=== PATIENT | female | born 1955 | race Caucasian/White ===

== ENCOUNTER 2022-03-31 06:55 | Observation (INO) | payer MEDICARE ==
[~2022-03-31] VITALS: Ht 157.5 cm; Wt 41.8 kg
[2022-03-31 08:38] LABS: Source, Urine Clean Catch
[2022-03-31 08:41] LABS: BASOPHILS ABSOLUTE AUTO 0.03 K/mm3 (0.00-0.23); BASOPHILS PERCENT AUTO 0 % (0-2); EOSINOPHILS ABSOLUTE AUTO 0.05 K/mm3 (0.00-0.68); EOSINOPHILS PERCENT AUTO 1 % (0-6); IMMATURE GRAN ABSOLUTE AUTO 0.02 K/mm3 (0.00-0.10); IMMATURE GRAN PERCENT AUTO 0 % (0-1); LYMPHOCYTES ABSOLUTE AUTO 0.87 K/mm3 (0.84-5.20); LYMPHOCYTES PERCENT AUTO 11 % (21-46); MONOCYTES ABSOLUTE AUTO 0.37 K/mm3 (0.16-1.47); MONOCYTES PERCENT AUTO 5 % (4-13); Mean Corpuscular HGB 27.4 pg (26.0-34.0); Mean Corpuscular HGB Conc 32.4 g/dL (31.5-36.5); Mean Corpuscular Volume 85 fL (80-100); Mean Platelet Volume 9.4 fL (9.1-12.4); NEUTROPHILS ABSOLUTE AUTO 6.62 K/mm3 (1.96-9.15); NEUTROPHILS PERCENT AUTO 83 % (41-73); Platelet Count 273 K/mm3 (150-400); RDW Standard Deviation 40.2 fL (35.1-46.3); Red Blood Cell Count 4.38 M/mm3 (3.80-5.20); White Blood Cell Count 7.96 K/mm3 (4.00-11.30)
[2022-03-31 08:42] LABS: Appearance, Urine Clear (Clear); Bilirubin, Urine Neg (Neg); Blood, Urine 3+ (Neg); Color, Urine Yellow (P-Yellow); Glucose Qualitative, Urine Neg (Neg); Ketones, Urine Neg (Neg); Leukocyte Esterase, Urine 1+ (Neg); Nitrite, Urine Neg (Neg); Protein, Urine 1+ (Neg); Specific Gravity, Urine 1.025 (1.003-1.022); Urobilinogen, Urine NORM (Normal)
[2022-03-31 08:54] LABS: Bacteria Few /hpf; Mucus Mod (0-Heavy); Red Blood Cells, Urine 0-2 /hpf (0-2); Squamous Epithelial Cells Rare /hpf (Few); White Blood Cells, Urine 0-2 /hpf (0-5)
[2022-03-31 09:11] LABS: Free Thyroxine 0.84 ng/dL (0.70-1.60); Thyroid Stimulating Hormone 0.005 uIU/mL (0.360-4.800)
[2022-03-31 09:12] LABS: Albumin, Blood 3.4 g/dL (3.4-5.0); Bun/Creatinine Ratio 18.8 (12.0-20.0); Calcium, Blood 8.8 mg/dL (8.5-10.1); Creatinine, Blood 0.59 mg/dL (0.40-1.00); Globulin, Blood 3.5 g/dL (2.2-4.0); Potassium, Blood 3.8 mmol/L (3.5-5.5); Total Protein, Blood 6.9 g/dL (6.4-8.2)
--- NOTE | 2022-04-01 03:54 | NUR ---
SHIFT SUMMARY: ALERT TO SELF ONLY- RESPONDING TO VERBAL STIMULI. PT REMAINS VERY FORGETFUL, DIFFICULTY REMEMBERING RECENT INFORMATION. SUPERVISION/STANDBY ASSIST WHEN AMBULATING. - DEA (DAUGHTER) CALLED AND REQUESTED UPDATE FROM MD FOLLOWING ROUNDING TO UPDATE PLAN OF CARE AND ANSWER HER QUESTIONS. NO COMPLAINTS OF PAIN THROUGHOUT THE NIGHT. PT VERY RESTLESS AT THE BEGINNING OF SHIFT, BECAME INCREASINGLY TIRED AND HAS RESTED THROUGHOUT THE NIGHT. BED ALARM REMAINS ACTIVATED, BED IN LOW POSITION, CALL STEWART AND BELONGINGS IN REACH.
[2022-04-01 05:32] LABS: Hematocrit 39.5 % (33.0-51.0); Hemoglobin 12.7 g/dL (11.5-16.0); Mean Corpuscular HGB 27.1 pg (26.0-34.0); Mean Corpuscular HGB Conc 32.2 g/dL (31.5-36.5); Mean Corpuscular Volume 84 fL (80-100); Mean Platelet Volume 9.6 fL (9.1-12.4); Platelet Count 280 K/mm3 (150-400); RDW Coefficient Variation 13.1 % (11.7-14.2); RDW Standard Deviation 40.3 fL (35.1-46.3); Red Blood Cell Count 4.69 M/mm3 (3.80-5.20); White Blood Cell Count 7.11 K/mm3 (4.00-11.30)
--- NOTE | 2022-04-01 10:22 | NUR ---
Brief supportive visit this AM. Pt is pleasantly confused, A&O to self and family only. Pt denies pain and dyspnea at this time. Spoke with Dr Polanco and JOSEP King. Discussed case and concerns. Plan for biopsy and daughter may benefit from update on findings and plan of care. Attempted to contact daughter Dominique. Left message on voicemail with request for a return phone call. Palliative Care will remain available.
--- NOTE | 2022-04-01 11:00 | NUR ---
PATIENT TRANSFERRED FROM ROOM 327 TO ROOM 348, REPORT RECEIVED FROM CHIQUITA SRINIVASAN. PATIENT ORIENTED TO ROOM AND USE OF CALL LIGHT. S/O PATRICIO AT BEDSIDE. PATIENT IS PLEASANTLY CONFUSED AND INDEPENDENT IN ROOM.
[2022-04-01 11:08] LABS: International Normalized Ratio 1.03; Prothrombin Time Results 10.8 Sec (9.7-11.5)
--- NOTE | 2022-04-01 12:23 | NUR ---
Received call from Primary RN Maddie reporting Pt's daughter has arrived. Arrived to Pt's room. Pt currently having biopsy performed. Pt's daughter and Pt's boyfriend at bedside. Provided update and reviewed plan of care. Discussed findings per request from Dr Polanco. Offered emotional support as daughter is intermittently tearful. Listened as daughter reports losing her father, brother, and grandfather in recent years. Continued supportive visit and answered questions. Family expresses appreciation. Palliative Care will remain available.
[2022-04-01 12:38] LABS: U Amphetamine Screen Not Detected; U Barbituate Screen Not Detected; U Benzodiazapine Screen DETECTED; U Buprenorphine Screen Not Detected; U Cannabinoids Screen Not Detected; U Cocaine Screen Not Detected; U Methadone Screen Not Detected; U Methamphetamine Screen Not Detected; U Opiates Screen Not Detected; U Oxycodone Screen Not Detected; U Phencyclidine Screen Not Detected; U Propoxyphene Screen Not Detected
--- NOTE | 2022-04-01 18:28 | NUR ---
PATIENT DAUGHTER DEA AND S/O PATRICIO AT BEDSIDE FOR MOST OF THIS SHIFT. PATIENT OREINTED TO SELF AND FAMILY ONLY. VERY ANXIOUS AND HAVING DIFFICULTY SETTLING IN. SEROQUEL GIVEN X1 WITH SOME RELIEF. COOPERATIVE WITH CARE, UP INDEPENDENTLY IN HALLS. VSS, ON RA. PALLIATIVE CARE NURSE LITTLE IN TO TALK TO PATIENTS FAMILY ABOUT TEST RESULTS AND PLAN OF CARE. FAMILY VERY SUPPORTIVE AND AND INVOLVED IN CARE. DAUGHTER DEA TO CALL IN AM TO TRY AND FIND PATIENT A PCP. PATIENT WENT DOWN TODAY TO HAVE A CT GUIDED BIOPSY. RESULTS PENDING.
[2022-04-02 05:18] LABS: Hematocrit 37.8 % (33.0-51.0); Hemoglobin 12.1 g/dL (11.5-16.0); Mean Corpuscular HGB 27.1 pg (26.0-34.0); Mean Corpuscular Volume 85 fL (80-100); Mean Platelet Volume 9.3 fL (9.1-12.4); Platelet Count 284 K/mm3 (150-400); RDW Coefficient Variation 12.9 % (11.7-14.2); RDW Standard Deviation 39.8 fL (35.1-46.3); Red Blood Cell Count 4.47 M/mm3 (3.80-5.20); White Blood Cell Count 7.63 K/mm3 (4.00-11.30)
[2022-04-02 05:42] LABS: Albumin, Blood 3.4 g/dL (3.4-5.0); Bilirubin, Total 1.1 mg/dL (0.1-1.0); Bun/Creatinine Ratio 21.7 (12.0-20.0); Creatinine, Blood 0.6 mg/dL (0.40-1.00); Globulin, Blood 3.5 g/dL (2.2-4.0); Potassium, Blood 3.8 mmol/L (3.5-5.5); Total Protein, Blood 6.9 g/dL (6.4-8.2)
--- NOTE | 2022-04-02 05:45 | NUR ---
SHIFT SUMMARY 66 YR F ADMITTED ON 03/31/22. FULL CODE. PT IS VERY CONFUSED AND A&O ONLY TO SELF. SHE CONTINUALLY STATED THAT SHE WAS LEAVING AND BECAME VERY INSISTANT. SHE PACED THE HALLS FOR HOURS BEFORE FINALLY BEING REDIRECTED TO HER ROOM. SHE IS CONVINCED SHE IS LEAVING IN THE MORNING AND SHE HAS BEEN AGITATED THAT SHE CANNOT LEAVE RIGHT AWAY. SHE STAYED IN HER ROOM FOR A COUPLE OF HOURS BUT IS VERY ANXIOUS AND WANTS TO PACE THE HALLWAY. THERE WERE NO ACUTE MEDICAL CHANGES THIS SHIFT.
--- NOTE | 2022-04-02 16:04 | NUR ---
Spoke with Dr Schaffer prior to Pt visit and discussed case. Pt sitting on room bench upon arrival. Pt's SO Wilver at bedside. Offered supportive visit and active listening. Pt significantly confused. Listened as Wilver reports being hopeful that Pt will be able to come home with him. Continued active listening and answered questions. Palliative Care will remain available.
--- NOTE | 2022-04-02 16:30 | NUR ---
PATIENT D/C'D TO HOME WITH S/O. DC INSTRUCTIONS AND EDUCATION DISCUSSED WITH PATIENT AND COPY PROVIDED. RX MEDICATIONS FAXED TO [facility]. PATIENT TO F/U WITH PCP AND DR. LIRA.
[2022-04-02] MEDS ORDERED: MULVITA PO (17:01)
[2022-04-02] MEDS ORDERED: MIRALAX17 GM PO (17:01)
[2022-04-02] MEDS ORDERED: QUET25 PO (17:02)
== END 2022-04-02 17:15 | disposition home or self-care (01) ==
LOC: EDBD 06:55 → ER 06:55 → MEDS 16:42
PROVIDERS: Emergency Medicine; Internal Medicine; ADMIT Internal Medicine
PROC: 0GBH3ZX Excision of Right Thyroid Gland Lobe, Percutaneous Approach, Diagnostic (ICD-10-PCS; principal; 2022-04-01)
DX: C73 Malignant neoplasm of thyroid gland (principal); G92.8 Other toxic encephalopathy; R64 Cachexia; R91.8 Other nonspecific abnormal finding of lung field; N39.0 Urinary tract infection, site not specified; G31.9 Degenerative disease of nervous system, unspecified
CPT/HCPCS: 36415; 60100; 70450; 70491; 71250; 77012; 80053; 81001; 82607; 82746; 84439; 84443; 84481; 85025; 85027; 85610; 86592; 87086; 88305; 88341; 88342; 97129; 97165; 99285-25; A9270; G0378; J3420; Q9967